=== PATIENT | female | born 1955 | race Caucasian/White ===

== ENCOUNTER 2019-05-16 06:34 | Day surgery (SDC) | payer MEDICAID ==
[2019-05-16] MEDS ORDERED: Sodium Chloride 0.9% 1,000 ML IV SCH (07:00)
[2019-05-16] MEDS ORDERED: Propofol 200 MG/20 ML SDV ONE (07:17)
[2019-05-16] MEDS ORDERED: fentaNYL 100 MCG/2 ML SDV ONE (07:17)
[2019-05-16] MEDS ORDERED: Midazolam 1 MG/ML 2 ML SDV ONE (07:17)
--- NOTE | 2019-05-16 08:10 | PCM.PRGIL ---
Lower GI Endoscopy Procedure - Diagnosis (1) Colon polyps Current Visit: Yes Status: Acute SNOMED Code(s): 30099056 Procedure:: Reports: Colonoscopy Performed By:: Suhail Lisa Referred By:: Richard Mackey Date of Service:: 05/16/19 Informed Consent Obtained?: Yes Indications:: Reports: Hx of Colon CA/Polyps Rectodigital Exam:: Reports: Normal Exam Sedation:: Reports: IV Depth Reached (Location):: Reports: Cecum Landmarks:: Reports: Cecum, Ileocecal Valve - Findings Hemorrhoids:: Reports: Internal External Hemorrhoid Grade (1,2,3,4):: 3 Condyloma:: Reports: None Colitis (Location):: Reports: None Polyps (location):: Reports: None Mass (Location):: Reports: None Previous Colon Surgery (Location):: Reports: None Stenosis (Location):: Reports: None Complications:: Reports: None Cultures:: Reports: None - Follow-up Follow-Up:: 5 Years
[2019-05-16 09:03] VITALS: BP 125/70; PULSE 63
== END 2019-05-16 09:16 | disposition home or self-care (01) ==
LOC: JP.SDS 06:34
PROVIDERS: ATTEND Hospitalist
DX: Z12.11 Encounter for screening for malignant neoplasm of colon (principal); K64.8 Other hemorrhoids; K64.4 Residual hemorrhoidal skin tags; K57.30 Diverticulosis of large intestine without perforation or abscess without bleeding; G47.33 Obstructive sleep apnea (adult) (pediatric); E03.9 Hypothyroidism, unspecified; E66.9 Obesity, unspecified; Z68.32 Body mass index [BMI] 32.0-32.9, adult; Z79.82 Long term (current) use of aspirin; Z79.899 Other long term (current) drug therapy
CPT/HCPCS: 45378; J2250; J2704; J3010; J7030